=== PATIENT | female | born 1965 | race Caucasian/White ===

== ENCOUNTER 2022-06-22 05:57 | Inpatient (IN) ==
--- NOTE | 2022-06-04 10:31 | PAT Medication Instructions ---
Medication Instructions Date of Service June 04, 2022 Home Medications Bifidobacterium infantis 10.5 mg (10 million cell) chewable tablet (Align) 1 mg PO QAM Dandelion Tea 1 dose PO QAM Lactobacillus 40-Bifidobact 3-S.thermophilus 100 billion cell capsule (Probiotic) 1 cap PO QAM ascorbic acid 7.5 mg-vit E 7.5 unit-biotin 1,250 mcg chewable tablet (Hair,Skin,Nails with Biotin) 1 tab PO QAM aspirin 325 mg tablet 325 mg PO QAM cholecalciferol (vitamin D3) 50 mcg (2,000 unit) capsule (Vitamin D3) 50 mcg PO QAM garlic 1,000 mg capsule 4,000 mg PO QAM magnesium 250 mg tablet 500 mg PO QAM milk thistle 150 mg capsule 150 mg PO QAM multivit-iron 18 mg-folic acid 400 mcg-calcium 500 mg-minerals tablet (Women's One Daily) 1 tab PO QAM potassium 99 mg tablet 99 mg PO QAM selenium 200 mcg tablet 200 mcg PO QAM turmeric 400 mg capsule 3,000 mg PO QAM vit A 300 mcg-C 200 mg-E 27 mg-lutein 2 mg and minerals tablet (Vision Formula (with lutein)) 1 tab PO QAM zinc 50 mg tablet 50 mg PO QAM ASK your prescriber and surgeon aspirin 325 mg tablet 325 mg PO QAM STOP taking 2 weeks before surgery (or as soon as possible if surgery is within 2 weeks) Bifidobacterium infantis 10.5 mg (10 million cell) chewable tablet (Align) 1 mg PO QAM Dandelion Tea 1 dose PO QAM Lactobacillus 40-Bifidobact 3-S.thermophilus 100 billion cell capsule (Probiotic) 1 cap PO QAM ascorbic acid 7.5 mg-vit E 7.5 unit-biotin 1,250 mcg chewable tablet (Hair,Skin,Nails with Biotin) 1 tab PO QAM cholecalciferol (vitamin D3) 50 mcg (2,000 unit) capsule (Vitamin D3) 50 mcg PO QAM garlic 1,000 mg capsule 4,000 mg PO QAM magnesium 250 mg tablet 500 mg PO QAM milk thistle 150 mg capsule 150 mg PO QAM multivit-iron 18 mg-folic acid 400 mcg-calcium 500 mg-minerals tablet (Women's One Daily) 1 tab PO QAM selenium 200 mcg tablet 200 mcg PO QAM turmeric 400 mg capsule 3,000 mg PO QAM vit A 300 mcg-C 200 mg-E 27 mg-lutein 2 mg and minerals tablet (Vision Formula (with lutein)) 1 tab PO QAM DO NOT take the morning of surgery potassium 99 mg tablet 99 mg PO QAM zinc 50 mg tablet 50 mg PO QAM Other Notes NOTHING TO EAT OR DRINK AFTER MIDNIGHT. If you have any questions please call us at [phone] or [phone] or [phone] or [phone]
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
[~2022-06-22 05:57] MED LIST: ALLERGY Noted to ORDERED Medication SCH
[2022-06-22] MEDS ORDERED: ACETAMINOPHEN 500 MG TAB PO SCH (06:00)
[2022-06-22] MEDS ORDERED: GABAPENTIN 600 MG DOSE PO SCH (06:00)
[2022-06-22] MEDS ORDERED: CeleBREX 200 MG CAP PO SCH (06:00)
[2022-06-22] MEDS ORDERED: LR 15ML/HR IV SCH (06:00)
[2022-06-22] MEDS ORDERED: NEOSTIGMINE METHYLSULFATE 1 MG/ML 10ML VIAL ONE (07:03)
[2022-06-22] MEDS ORDERED: MIDAZOLAM HCL 1 MG/ML 2ML VIAL ONE (07:03)
[2022-06-22] MEDS ORDERED: fentaNYL citrate 100 MCG/2 ML VIAL ONE (07:03)
[2022-06-22] MEDS ORDERED: PROPOFOL IV EMULSION 10 MG/ML 20 ML VIAL IV ONE (07:03)
[2022-06-22] MEDS ORDERED: GLYCOPYRROLATE 0.2 MG/ML VIAL ONE (07:03)
[2022-06-22] MEDS ORDERED: ONDANSETRON INJ 2 MG/ML 2 ML VIAL ONE ×2 (07:03→08:57)
[2022-06-22] MEDS ORDERED: DEXAMETHASONE SOD INJ 4 MG/ML VIAL ONE (07:03)
[2022-06-22] MEDS ORDERED: ROCURONIUM BROMIDE 10 MG/ML 5 ML VIAL IV ONE (07:12)
[2022-06-22] MEDS ORDERED: SUCCINYLCHOLINE CHLORIDE 20 MG/ML 10 ML VIAL IV ONE (07:12)
[2022-06-22] MEDS ORDERED: LIDOCAINE 2% MPF LOCAL 5 ML VIAL INFIL ONE (07:12)
[2022-06-22] MEDS ORDERED: LARYING-O-JET KIT (LTA) ONE (07:12)
[2022-06-22] MEDS ORDERED: ceFAZolin 330 MG/ML 1 GM VIAL ONE (07:21)
[2022-06-22] MEDS ORDERED: ATROPINE SULFATE 0.1 MG/ML 10ML SYR IV PRN (07:26)
[2022-06-22] MEDS ORDERED: ePHEDrine sulfate 50 MG/ML AMP IV PRN (07:26)
[2022-06-22] MEDS ORDERED: MEPERIDINE HCL 25 MG/ML CARP/VIAL IV PRN (07:26)
[2022-06-22] MEDS ORDERED: PROMETHAZINE HCL 12.5 MG in SODIUM CHLORIDE 0.9% 50 ML IV PRN ×2 (07:26→11:51)
[2022-06-22] MEDS ORDERED: ONDANSETRON INJ 2 MG/ML 2 ML VIAL IV PRN ×2 (07:26→11:51)
--- NOTE | 2022-06-22 07:32 | History & Physical Bridge Note ---
Date of Service June 22, 2022 History & Physical Bridge Note I have examined the patient, reviewed the History & Physical and in the interval since the performance of the History & Physical I have noted the following changes of clinical significance: no changes noted
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
[2022-06-22] MEDS ORDERED: CLINDAMYCIN 900 MG/D5W 50 ML BAG IV ONE (07:37)
[2022-06-22] MEDS ORDERED: CLINDAMYCIN/D5W 900 MG/50 ML BAG IV ONE (07:44)
[2022-06-22] MEDS ORDERED: HYDROmorphone INJ 2 MG/ML SYR/VIAL ONE (08:46)
[2022-06-22] MEDS ORDERED: SUGAMMADEX SODIUM 200 MG/2 ML VIAL IV ONE (08:57)
[2022-06-22] MEDS ORDERED: FLOSEAL HEMOSTATIC MATRIX 10ML TOP ONE (08:59)
--- NOTE | 2022-06-22 09:05 | Operative Report ---
Post Operative Report Pre & Post Diagnosis Operation Date: 06/22/22 07:45 Pre-Op Diagnosis: Cervical disc herniation with radiculopathy Post-Op Diagnosis: Same I identified the patient and participated in the time-out.: Yes Procedure Operation Date: 06/22/22 07:45 Actual Procedures #1 anterior cervical discectomy with bilateral foraminotomies C5-C6. #2 anterior cervical disc at C5-C6. #3 placement of 9 mm spiral filled with I factor at C5-C6. #4 placement of K2 M plate and screws across C5-C6. Follow-up Surgeon Neri Deutsch DO Digital Recruiter Zhang [place] Estimated Blood Loss 10 Findings See Below The patient is 5 foot 10 weighing over 125 kg with a BMI in excess of 39. Patient's body habitus did contribute to significant technical difficulty with positioning exposure adding at least 50% increased operative time. Specimens None Indications This is a 48-year-old female who presents above-mentioned diagnosis after failing course of nonoperative care she is here for surgical invention. Description of Procedure Patient was met with identified informed consent obtained. Patient was then taken to the operative suite underwent a patient placed in the supine position the Solo table the head [place] teller head. All bony prominences well- padded eyes inspected to ensure no external pressure placed upon the. This point the anterior cervical spine was prepped and draped in the normal sterile fashion. With the assistance of fluoroscopy identified the C5-C6 disc base and a transverse incision was placed along the right anterior aspect of the cervical spine overlying this region. Blunt dissection with assistance of bipolar elec trocautery was performed down to and exposing the anterior cervical spine from C5-C6. Self-retaining tractors placed. I then performed a complete discectomy of C5-C6 out to the uncovertebral joints bilaterally. [place] distracting pins were utilized to assist in visualization. Removed all posterior annular fibers longitudinal ligament bilateral foraminotomies performed. Endplates burred to subcortical bleeding bone and a 9 mm spiral cage with I factor tapped in position. Distracting apparatus was removed all anterior osteophytes burred to a smooth cortical surface and a K2 M plate and screws applied with the assistance of fluoroscopy. The incision was then copiously irrigated explored to ensure no damage to surrounding structures or remaining bleeding. 10 round [place] drain inserted. The incision was then closed with 2 Vicryl in the fascia and 4 Monocryl for final skin closure. Steri-Strip sterile dressings placed. Patient waken taken to PACU stable condition. Please note spinal cord monitoring was utilized at the procedure no changes noted. Lastly Zhang [place] was present at the entire surgery and while the patient positioning complex portions of the surgery and final skin closure. I attest to the content of the Intraoperative Record and any orders documented therein. Any exceptions are noted below.
--- NOTE | 2022-06-22 09:40 | Fluoroscopy Report ---
FL cervical 2-3V CLINICAL HISTORY: C5-C6 ACDFchronic neck pain COMPARISON STUDY: None FLUOROSCOPY TIME: 15 seconds FLUOROSCOPY IMAGES: 2 EXPOSURE DOSE: 1.56 mGy FINDINGS: Anterior plate and screw fusion at C5-C6. The hardware appears intact. Endotracheal tube is noted along with surgical drainage catheter. Surgical sponge within the anterior soft tissues. Note that the images were submitted after completion of the surgery. IMPRESSION: Fluoroscopic assistance as above. ACT 112: Negative or not required by law. Electronically signed by: Christian Carvajal M.D. 06/22/2022 9:39 AM
[2022-06-22] MEDS: HYDROmorphone INJ 2 MG/ML SYR/VIAL IV PRN ×2 (09:41→09:58)
--- NOTE | 2022-06-22 10:45 | Anesthesiology Progress Note ---
Date of Service June 22, 2022 Anesthesia Post Procedure Vital Signs Vital Signs: Temp Pulse Pulse Resp BP Pulse Ox O2 Del Method 06/22/22 10:30 80 16 121/67 95 Nasal Cannula 06/22/22 10:20 36.5 C 78 16 125/67 95 Nasal Cannula 06/22/22 10:10 79 15 130/67 96 Nasal Cannula 06/22/22 10:00 75 20 145/72 H 96 Nasal Cannula 06/22/22 09:50 78 17 135/72 95 Nasal Cannula 06/22/22 09:40 72 21 172/90 H 98 Oxymask 06/22/22 09:30 80 17 147/81 H 97 Oxymask 06/22/22 09:20 36.4 C L 80 16 151/83 H 93 Oxymask 06/22/22 06:41 36.8 C 90 20 162/91 H 99 Room Air O2 Flow Rate 06/22/22 10:30 2 06/22/22 10:20 2 06/22/22 10:10 4 06/22/22 10:00 2 06/22/22 09:50 2 06/22/22 09:40 13 06/22/22 09:30 13 06/22/22 09:20 13 06/22/22 06:41 Pain Intensity Left Posterior Neck: Pain Intensity: 4 Right Lower Neck: Pain Intensity: 6 Transfer of Care Handoff Completed per policy Notes Mental Status: alert / awake / arousable and participated in evaluation Nausea / Vomiting: adequately controlled Pain: adequately controlled Airway Patency, RR, SpO2: stable & adequate BP & HR: stable & adequate Hydration State: stable & adequate Anesthetic Complications: no major complications apparent and Pt Satisfied with anesthetic care
[2022-06-22] MEDS ORDERED: NALOXONE HCL 0.4 MG/1 ML VIAL/CARP IV PRN (11:51)
[2022-06-22] MEDS ORDERED: RACEPINEPHRINE 2.25% NEBU SOLN 0.5 ML VIAL INH PRN (11:51)
[2022-06-22] MEDS ORDERED: HYDROmorphone INJ 1 MG/ML SYRINGE IV PRN (11:51)
[2022-06-22] MEDS ORDERED: bisacodyL 10 MG SUPP PR PRN (11:51)
[2022-06-22] MEDS ORDERED: dexAMETHasone 8 MG in SYRINGE 0 ML IV PRN (11:51)
[2022-06-22] MEDS ORDERED: ACETAMINOPHEN 500 MG TAB PO PRN (11:51)
[2022-06-22] MEDS ORDERED: ACETAMINOPHEN 1,000 MG/100 ML VIAL IV PRN (11:51)
[2022-06-22] MEDS ORDERED: hydrOXYzine HCl 25 MG TAB PO PRN (11:51)
[2022-06-22] MEDS ORDERED: DO NOT ADMINISTER PNEUMOCOCCAL VACCINE PRN (11:51)
[2022-06-22] MEDS ORDERED: MAGNESIUM HYDROXIDE SUSP 30 ML UDC PO PRN (11:51)
[2022-06-22] MEDS ORDERED: DO NOT ADMINISTER FLU VACCINE PRN (11:51)
[2022-06-22] MEDS ORDERED: METOCLOPRAMIDE HCL INJ 5 MG/ML 2 ML VIAL IV PRN (11:51)
[2022-06-22] MEDS ORDERED: traMADol HCL 50 MG TABLET PO PRN (11:51)
[2022-06-22] MEDS ORDERED: LORazepam 2 MG/1 ML VIAL IV PRN (11:51)
[2022-06-22] MEDS ORDERED: ALUMINUM/MAGNESIUM SUSP 30 ML UDC PO PRN (11:51)
[2022-06-22] MEDS ORDERED: FAMOTIDINE 20 MG TAB PO PRN (11:51)
[2022-06-22] MEDS ORDERED: ONDANSETRON 4 MG OD TAB PO PRN (11:51)
[2022-06-22] MEDS ORDERED: diphenhydrAMINE Capsule 25 MG CAP PO PRN (11:51)
[2022-06-22] MEDS ORDERED: LORazepam 0.5 MG TAB PO PRN (11:51)
[2022-06-22] MEDS ORDERED: SOD PHOSPHATE/SOD BIPHOSPHATE ENEMA 132 ML BTL PR PRN (11:51)
[2022-06-22] MEDS: HYDROmorphone INJ 0.5 MG/0.5 ML SYR IV PRN (14:04)
[2022-06-22] MEDS: LACTATED RINGER'S 1,000 ML IV SCH ×2 (15:00→20:55)
[2022-06-22] MEDS: CLINDAMYCIN/D5W 600 MG/50 ML BAG IV SCH ×2 (17:35→23:49)
[2022-06-22] MEDS ORDERED: DOCUSATE SODIUM/SENNA 50/8.6MG TAB PO SCH (21:00)
[2022-06-23] MEDS: HYDROmorphone INJ 0.5 MG/0.5 ML SYR IV PRN (01:47)
[2022-06-23] MEDS: LACTATED RINGER'S 1,000 ML IV SCH (03:30)
[2022-06-23] MEDS: POLYETHYLENE (MIRALAX) 17 GM PACK PO SCH ×2 (05:02→12:20)
[2022-06-23] MEDS: oxyCODONE HCL IR 5 MG TAB (IMMEDIATE RELEASE) PO PRN ×2 (07:59→13:03)
[2022-06-23] MEDS ORDERED: MAGNESIUM OXIDE 400 MG TAB PO SCH (09:00)
[2022-06-23] MEDS ORDERED: ASPIRIN 325 MG ECTAB PO SCH (09:00)
[2022-06-23] MEDS ORDERED: dexAMETHasone 6 MG in SYRINGE 0 ML IV SCH (09:00)
--- NOTE | 2022-06-23 11:27 | Discharge Summary ---
Date of Service June 23, 2022 Admission HPI Per Admitting Provider This is a 48-year-old female presents with chronic persistent neck and arm pain after failing course of nonoperative care she is here for surgical invention. Principal Diagnosis Cervical disc herniation with radiculopathy Discharge Data Allergies Allergy/AdvReac Type Severity Reaction Status Date / Time iodine Allergy Intermediate Rash Verified 06/22/22 06:31 Penicillins Allergy Intermediate Hives Verified 06/22/22 06:31 Procedures Performed Operation Date: 06/22/22 07:45 Actual Procedures p C5-C6 Anterior Cervical Discectomy and Fusion, Spinal Cord Monitoring(Not Applicable) - Neri Deutsch DO Ordered Studies 06/22/22 [place] cervical 2-3V Routine Hospital Course (1) Cervical stenosis of spinal canal: Patient underwent anterior cervical discectomy and fusion tolerated this well was taken to orthopedic for postoperative. Postop day 1 she was swallowing well no hoarseness. [place] drain decreasing appropriate. Excellent strength testing. Safely discharged home. Discharge orders instructions from the chart for further review. Total Time Total Time Spent Total Time Spent (In Minutes): 20 minutes Discharge Plan Discharge Items Patient Disposition: Home - Self-Care Reason For Visit: Spinal Stenosis, Cervical Region Discharge Diagnosis: Cervical disc herniation with radiculopathy Activity: As commented below Non-emergency contact: Primary Care Provider Call non-emergency contact if: you have any medication questions Follow-up/Referrals: Janell Collins DO [Primary Care Provider] - Diet: Regular Addtl Attending Provider Instructions: ACTIVITY RECOMMENDATIONS: SELF CARE INSTRUCTIONS AFTER CERVICAL FUSIONS 1. No smoking. Smoking drastically decreases the chance of a solid fusion. 2. No bending, lifting more than 5 pounds, or twisting (roll like a log when turning in bed). 3. You may shower 3 days after surgery. Thoroughly dry wound. Do not soak in the tub. 4. Cervical collar: Must be worn at all times including sleeping. You may remove the brace only to bath, eat and if you are sitting in a recliner. 5. Please walk as much as you can for exercise. Gradually increase the distance that you walk as your endurance increases. SPECIAL CARE INSTRUCTIONS: VERY IMPORTANT TO READ AND REVIEW A. Do not take any anti-inflammatory medications (i.e. Indocin, Advil, Aspirin, Naprosyn, Aleve, Motrin, etc.) as these may inhibit the chance of a solid fusion. Tylenol is okay to take. B. Your surgical incision has been closed with a cosmetic suture under the skin that will dissolve in about 6 weeks. In 14 days, you can use a pair of clean scissors and cut the suture that is left outside of the skin at the ends of your incision. C. Complications are uncommon, but please contact us if you have any signs or symptoms of: 1. wound infection (fever higher than 102.5 degrees F, redness, separation of wound, drainage, or increasing pain from the incision) 2. blood clots in legs (pain, swelling, redness and warmth in legs) 3. urinary tract infection (fever higher than 102.5 degrees, burning upon urination or increased frequency of urination) 4. nerve problems (inability to walk on your toes or heels, numbness, loss of bowel or bladder control) 5. any other symptoms that concern you. D. Please call the office at if you have any concerns or questions about your operation or recovery. MANAGING PAIN AFTER SPINAL SURGERY 1. Narcotic medication is intended for short-term use and will be provided for surgical pain. Surgical pain usually lasts for a period of 4-6 weeks. Narcotic medication includes Percocet, Vicodin, Darvocet, Tylenol #3 or Lortab. 2. Longer-term pain is more appropriately treated with non-narcotic medication such as Tylenol ES. 3. Muscle spasm is not appropriately treated with narcotics. Muscle relaxers such as Soma, Flexeril or Skelaxin can be used along with Tylenol ES. 4. Remember that we all live with some "aches and pains". This is not unusual or uncommon after an injury or as we get older. 5. We will provide appropriate medication within the normal guidelines of their prescribed use. We will also be very cautious and aware of potential abuse and extended duration of patients' medication needs. 6. Please allow 2-3 days to process refills. Prescriptions will not be mailed but must be picked up at the office. FOLLOW UP VISIT: Keep your scheduled follow-up appointment. Any questions, please call the office at . Pending Studies at Discharge: No Stand-Alone Forms: [email or web address], Smoking Cessation Medications and DC Order Prescriptions: New oxycodone 5 mg tablet 5 mg PO Q6H PRN (Reason: pain, severe) Qty: 20 0RF Continued aspirin 325 mg Tablet 325 mg PO QAM selenium 200 mcg Tablet 200 mcg PO QAM garlic 1,000 mg Capsule 4,000 mg PO QAM milk thistle 150 mg Capsule 150 mg PO QAM Rx Instructions: give with meal/snack potassium 99 mg Tablet 99 mg PO QAM zinc 50 mg Tablet 50 mg PO QAM magnesium 250 mg Tablet 500 mg PO QAM Vision Formula (with lutein) 300 mcg-200 mg-27 mg-2 mg Tablet 1 tab PO QAM cholecalciferol (vitamin D3) [Vitamin D3] 50 mcg (2,000 unit) Capsule 50 mcg PO QAM Women's One Daily 18 mg iron-400 mcg-500 mg Ca Tablet 1 tab PO QAM Hair, Skin, Nails with Biotin 7.5-7.5-1,250 mg-unit-mcg Tablet,Chewable 1 tab PO QAM Align 10.5 mg (10 million cell) Tablet,Chewable 1 mg PO QAM Probiotic 100 billion cell Capsule 1 cap PO QAM turmeric 400 mg Capsule 3,000 mg PO QAM Dandelion Tea 1 dose PO QAM Discharge Orders: Discharge Order (Routine); Ordered 06/23/22 Ordered By: Neri Deutsch Admission Data Admit Date/Time: 06/22/22 09:09 Attending Provider: Neri Deutsch Admit Provider: Neri Deutsch Primary Care Provider: Janell Collins
== END 2022-06-23 13:43 | disposition home or self-care (01) | DRG 473 ==
LOC: ASU 05:57 → 3E 09:09

== ENCOUNTER 2025-03-04 12:56 | Observation (INO) ==
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
[2025-03-04 14:15] LABS: Alanine Aminotransferase 20.0 U/L (7-52); Albumin Globulin Ratio 1.4 (0.9-2); Albumin Level 4.0 gm/dl (3.4-5.0); Alkaline Phosphatase 68.0 U/L (34-104); Anion Gap 10.0 (3-11); Bilirubin,Total 0.3 mg/dl (0.2-1.0); Blood Urea Nitrogen 16.0 mg/dl (6-23); Calcium 8.9 mg/dl (8.6-10.3); Carbon Dioxide 24.0 mmol/L (21-32); Chloride 107.0 mmol/L (98-107); Creatinine Clr Calc Pharmacy 126.6 ml/min; Globulin 2.8 gm/dl (2.5-4.0); Glucose 145.0 mg/dl (70-99(Fasting)); Potassium 3.8 mmol/L (3.5-5.1); Sodium 141.0 mmol/L (136-145); Total Protein 6.8 gm/dl (6.0-8.3)
--- NOTE | 2025-03-04 14:16 | XRay Report ---
SINGLE VIEW CHEST CLINICAL HISTORY: Elevated right hemidiaphragm. FINDINGS: An AP, portable, upright chest radiograph is compared to study dated 03/04/2025 and 06/08/19. The heart is enlarged noting atherosclerotic calcification of the thoracic aorta. The pulmonary v asculature is noncongested. Chronic interstitial thickening is similar to previous. There is elevatio n of right hemidiaphragm with right basilar atelectasis. This is unchanged in today's earlier examina tion but new from 06/08/2022. No large pleural effusion or pneumothorax is seen. The skeletal structur es are osteopenic. The bony thorax is grossly intact. Fusion hardware is seen in the lower cervical s pine. IMPRESSION: 1. Cardiomegaly without radiographic evidence of congestive failure. 2. There is elevation the right hemidiaphragm which is unchanged from today's earlier examination but new from 2022. This can potentially be seen with diaphragmatic paralysis. Clinical correlation will be required ACT 112: Negative or not required by law. Electronically signed by: Rubens Benavidez M.D. 03/04/2025 2:14 PM
[2025-03-04] MEDS ORDERED: ACETAMINOPHEN 325 MG TAB PO PRN (15:58)
[2025-03-04 16:41] LABS: Hematocrit (blood only) 44.5 % (37.0-47.0); Hemoglobin 14.9 g/dl (12.0-16.0); Mean Corpuscular Hemoglobin 30.3 pg (25.0-34.0); Mean Corpuscular Volume 90.4 fL (80.0-100.0); Platelet Count 236 K/uL (130-400); RDW Standard Deviation 40.9 fL (36.4-46.3); Red Blood Count 4.92 M/uL (4.20-5.40); White Blood Count 11.43 K/ul (4.8-10.8)
[2025-03-04 16:41] LABS: iSTAT Art Bld Gas Base Excess -2.0 mmol/L (-9-1.8); iSTAT Art Bld Gas pCO2 Correct 40 mmHg (35-46); iSTAT Art Bld Gas pH Corrected 7.369 (7.35-7.45); iSTAT Arterial Blood Gas pO2 C 68
[2025-03-04 17:13] LABS: Immature Granulocytes # (auto) 0.05 K/uL (0.01-0.20); Immature Granulocytes % (auto) 0.4 %; RBC Morphology Unremarkable
[2025-03-04 17:47] LABS: Appearance Urine Clear (Clear); Glucose Urine UA Negative (Negative)
[2025-03-04 18:03] VITALS: TEMP 97.9
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
[2025-03-04] MEDS: HEPARIN SOD 5,000 UNIT/0.5 ML VIAL SQ SCH (21:04)
[2025-03-05 06:06] LABS: Hematocrit (blood only) 42.0 % (37.0-47.0); Hemoglobin 13.5 g/dl (12.0-16.0); Immature Granulocytes # (auto) 0.06 K/uL (0.01-0.20); Immature Granulocytes % (auto) 0.4 %; Mean Corpuscular Hemoglobin 29.6 pg (25.0-34.0); Mean Corpuscular Volume 92.1 fL (80.0-100.0); Platelet Count 240 K/uL (130-400); RDW Standard Deviation 43.0 fL (36.4-46.3); Red Blood Count 4.56 M/uL (4.20-5.40); White Blood Count 13.97 K/ul (4.8-10.8)
[2025-03-05 06:28] VITALS: O2SAT 95
--- NOTE | 2025-03-05 09:20 | Orthopedic Progress Note ---
Date of Service March 05, 2025 Assessment & Plan (1) Acute hypoxic respiratory failure: * Continue Current Treatment * S/p R shoulder arthroscopy with subsequent R hemidiaphragm from interscalene block * Improved this morning, no O2 needs * Weight bearing status: NWB RUE, maintain sling * Pain control - Toradol * Disposition: home * Office/hospital f/u 2 weeks for progress check and staple/suture removal as scheduled * Stable for discharge from ortho standpoint (2) Status post arthroscopy of right shoulder: Subjective .Active Problems: S/p right shoulder arthroscopy with extensive debridement, acromioplasty, rotator cuff repair, and biceps tenodesis POD 1 59 y/o female s/p right shoulder arthroscopy with extensive debridement, acromioplasty, rotator cuff repair, and biceps tenodesis. Unfortunately post-op developed SOB and hypoxia, XR revealed R hemidiaphragm from her interscalene block. Referred to ED for overnight observation. This morning is doing well overall, pain managed and improved function. No longer requiring O2. Denies fever/chills, chest pain/SOB, nausea/vomiting. Notes residual tingling in her thumb but has been improving with time. Otherwise no complaints. Review of Systems All systems reviewed & are unremarkable except as noted in HPI & below. Physical Exam . * General: Alert and oriented, no acute distress * Constitutional: well-developed, well-nourished. * Respiratory: Normal respiratory effort, no distress * Gastrointestinal: No tenderness to palpation, no rigidity or guarding. * Skin: No rash or lesion. * Neurologic: Grossly normal * Musculoskeletal: R shoulder surgical dressing in place, not removed for exam. Sling in place. Diffuse mild tenderness of the shoulder region. Otherwise no tenderness upper arm, forearm, wrist/hand. AROM finger flexion and extension intact. Sensation intact radial/median/ulnar nerve distributions. Brisk capillary refill. Results & Data Results & Data Laboratory Results . Diagnostic Findings . Chest X-Ray 03/04/25 13:38 SINGLE VIEW CHEST CLINICAL HISTORY: Elevated right hemidiaphragm. FINDINGS: An AP, portable, upright chest radiograph is compared to study dated 03/04/2025 and 06/08/2022. The heart is enlarged noting atherosclerotic calcification of the thoracic aorta. The pulmonary vasculature is noncongested. Chronic interstitial thickening is similar to previous. There is elevation of right hemidiaphragm with right basilar atelectasis. This is unchanged in today's earlier examination but new from 06/08/2022. No large pleural effusion or pneumothorax is seen. The skeletal structures are osteopenic. The bony thorax is grossly intact. Fusion hardware is seen in the lower cervical spine. IMPRESSION: 1. Cardiomegaly without radiographic evidence of congestive failure. 2. There is elevation the right hemidiaphragm which is unchanged from today's earlier examination but new from 2022. This can potentially be seen with diaphragmatic paralysis. Clinical correlation will be required ACT 112: Negative or not required by law. Electronically signed by: Rubens Benavidez M.D. 03/04/2025 2:14 PM PG Care Time/CCT Total # of Minutes Spent Total Time Spent with Patient: Total time spent is greater than 50% in coordination of care (as documented) at patient's floor/unit and/or counseling patient: Coding Level of Care Code 62287 Post Operative Follow-Up Diagnoses Acute hypoxic respiratory failure J96.01 Status post arthroscopy of right shoulder Z98.890
[2025-03-05] MEDS: KETOROLAC TROMETHAMINE 10 MG TABLET PO ONE (10:14)
[2025-03-05 13:08] VITALS: BP 115/76; PULSE 72; RESP 24
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
--- NOTE | 2025-03-05 19:09 | Electrocardiogram Report ---
Test Reason : Blood Pressure : */* mmHG Vent. Rate : 127 BPM Atrial Rate : 127 BPM P-R Int : 174 ms QRS Dur : 80 ms QT Int : 288 ms P-R-T Axes : 36 21 38 degrees QTcB Int : 418 ms Sinus tachycardia Cannot rule out Inferior infarct , age undetermined Anterior infarct , age undetermined Abnormal ECG When compared with ECG of 01-Feb-2025 12:46, Vent. rate has increased by 56 bpm Anterior infarct is now Present Nonspecific T wave abnormality now evident in Inferior leads Confirmed by Raúl Chance ([id number]) on 03/05/2025 7:09:20 PM Referred By: REFERRED SELF Confirmed By: Raúl Chance
--- NOTE | 2025-03-06 16:59 | Electrocardiogram Report ---
Test Reason : Blood Pressure : */* mmHG Vent. Rate : 95 BPM Atrial Rate : 95 BPM P-R Int : 212 ms QRS Dur : 84 ms QT Int : 340 ms P-R-T Axes : 35 16 22 degrees QTcB Int : 427 ms Sinus rhythm with 1st degree A-V block Poor R wave progression, consider anterior OK vs. lead placement vs. LVH Abnormal ECG When compared with ECG of 01-Feb-2025 12:46, Borderline criteria for Anterior infarct are now Present Nonspecific T wave abnormality now evident in Inferior leads Confirmed by Subhash Corado ([id number]) on 03/06/2025 4:59:23 PM Referred By: REFERRED SELF Confirmed By: Subhash Corado
== END 2025-03-05 12:40 | disposition home or self-care (01) ==
LOC: EDINP 12:56 → ED 12:56 → SUATTDRO 15:58 → EDINP 22:29
DX: Z88.0 Allergy status to penicillin; Z79.899 Other long term (current) drug therapy; E78.5 Hyperlipidemia, unspecified; J96.11 Chronic respiratory failure with hypoxia; Z85.828 Personal history of other malignant neoplasm of skin; D72.829 Elevated white blood cell count, unspecified; F32.9 Major depressive disorder, single episode, unspecified; R00.0 Tachycardia, unspecified; E66.9 Obesity, unspecified; Z87.891 Personal history of nicotine dependence; M48.02 Spinal stenosis, cervical region; Z98.1 Arthrodesis status; Z91.041 Radiographic dye allergy status; Z68.39 Body mass index [BMI] 39.0-39.9, adult